=== PATIENT | male | born 1985 ===

== ENCOUNTER → 2024-06-17 | Outpatient (REF) | payer OTHER ==
[2024-06-17 12:10] LABS: SEMEN APPEARANCE OPAQUE (OPAQUE); SEMEN VISCOSITY LIQUID (LIQUID); SEMEN VOLUME 8.5 ml (2.0-5.0); SEMEN pH 8.5 (7.0-8.0)
[2024-06-17 12:11] LABS: SPERM CONCENTRATION 49.5 M/ml (>=15.0); TOTAL PROGRESSIVE SPERM 227.7 M/Ejac.; WBC CONCENTRATION >1 M/ml (<=1 M/ml)
== END ==
LOC: M LAB REF 11:58
PROVIDERS: ATTEND Obstetrics & Gynecology
DX: N46.9 Male infertility, unspecified (principal)